=== PATIENT | male | born 1960 | race Caucasian/White ===

== ENCOUNTER 2018-12-28 06:32 | Day surgery (SDC) | payer BC ==
[~2018-12-28 06:32] MED LIST: Lactated Ringers 1,000 ML IV SCH
[2018-12-28] MEDS ORDERED: Lidocaine 4% 5 ML Amp ONE (07:36)
[2018-12-28] MEDS ORDERED: fentaNYL 100 MCG/2 ML SDV ONE (07:43)
[2018-12-28] MEDS ORDERED: Propofol 200 MG/20 ML SDV ONE (07:43)
[2018-12-28] MEDS ORDERED: Midazolam 1 MG/ML 2 ML SDV ONE (07:43)
[2018-12-28 08:50] VITALS: BP 147/95; PULSE 58
--- NOTE | 2018-12-28 09:57 | OR ---
PREOPERATIVE DIAGNOSIS: History of polyps. POSTOPERATIVE DIAGNOSIS: Tiny polyp at 60 cm, removed. PROCEDURE PROPOSED: Total flexible colonoscopy. PROCEDURE DONE: Total flexible colonoscopy with cold biopsy forceps polypectomy x1. INDICATION: This is a 58-year-old gentleman, who comes in for colonic surveillance due to history of polyps. He has had several previous colonoscopies. His examination was about 3 years ago. TECHNIQUE: The patient was brought to the endoscopy suite, placed in the left lateral decubitus position. He was sedated per [employer] with propofol. The flexible video colonoscope was then passed transanally and under visualization advanced to the cecum. Examination revealed normal ascending and transverse colon. In the descending colon, at about 60 cm, there was a tiny polyp removed with 1 bite of the cold biopsy forceps. The remainder of the descending, sigmoid, and rectal colon was unremarkable. No signs of any diverticulosis, colitis, or other abnormalities, and the scope was then withdrawn. The patient tolerated the procedure well. FINAL IMPRESSION: 1. Tiny polyp at 60 cm, removed. 2. History of previous polyps. PLAN: The patient should continue with colonic surveillance every 5 years hereafter due to his history of polyps. SCM: 12/28/2018 08:20:53 MODL: 12/28/2018 08:51:25 /[id number]
--- NOTE | 2018-12-28 09:58 | OR ---
PREOPERATIVE DIAGNOSIS: Mild dyspepsia. POSTOPERATIVE DIAGNOSIS: Essentially normal exam of the esophagus, stomach, and duodenum. PROCEDURE PROPOSED: Upper gastrointestinal panendoscopy with antral biopsies. PROCEDURE DONE: Upper gastrointestinal panendoscopy with antral biopsies. INDICATION: This is a 58-year-old gentleman, who has had some mild dyspepsia symptoms. He has been gastroscoped before, and he was referred for followup exam. TECHNIQUE: The patient was brought to the endoscopy suite, placed in the left lateral decubitus position. He was sedated per [employer] with propofol. A flexible video gastroscope was then passed transorally after inserting the bite block. The scope was advanced well into the 3rd and 4th portions of the duodenum. The duodenum and duodenal bulb were unremarkable. The antrum and body of the stomach looked very normal and healthy without inflammation or ulceration. Couple of antral biopsies were taken to rule out H. pylori, and the patient was found to have a normal GE junction without hiatal hernia or GERD or Schatzki's ring or stenosis, and the remainder of the esophagus was normal as the scope was then withdrawn. He tolerated the procedure well. FINAL IMPRESSION: Essentially normal exam of esophagus, stomach, and duodenum. PLAN: The patient was reassured and I felt nothing further needed to be done regarding his exam. He is also scheduled for a colonoscopy. SCM: 12/28/2018 08:20:53 MODL: 12/28/2018 08:49:17 /[id number]
--- NOTE | 2019-01-11 09:44 | LETTER ---
01/11/2019 Elin Adhikari RE: ELIN ADHIKARI : 1960 Dear Elin: The biopsies taken from your stomach did not reveal any abnormality and you do not have the bacteria in your stomach known as H pylori. The polyp removed from your colon was totally benign and insignificant. However, with your history of polyps, I feel that you should continue with colonoscopies every 5 years hereafter. Respectfully,
== END 2018-12-28 09:00 | disposition home or self-care (01) ==
LOC: VM.SDS 06:32
PROVIDERS: ATTEND Surgery
DX: Z12.11 Encounter for screening for malignant neoplasm of colon (principal); K63.5 Polyp of colon; R10.13 Epigastric pain; I10 Essential (primary) hypertension; E11.9 Type 2 diabetes mellitus without complications; E78.00 Pure hypercholesterolemia, unspecified; D50.9 Iron deficiency anemia, unspecified; E66.9 Obesity, unspecified; Z68.35 Body mass index [BMI] 35.0-35.9, adult; Z88.8 Allergy status to other drugs, medicaments and biological substances; Z85.46 Personal history of malignant neoplasm of prostate; Z86.010 Personal history of colon polyps; Z79.84 Long term (current) use of oral hypoglycemic drugs; Z79.82 Long term (current) use of aspirin; Z79.899 Other long term (current) drug therapy
CPT/HCPCS: 43239; 45380; 82962; J2250; J2704; J3010; J7120

== ENCOUNTER → 2024-05-27 | Day surgery (SDC) | payer MEDICARE, OTHER ==
[~2024-05-27] MED LIST changes: -Lactated Ringers 1,000 ML IV SCH; +Propofol 200 MG/20 ML SDV ONE; +fentaNYL 100 MCG/2 ML SDV ONE
[2024-05-27] MEDS: Lactated Ringers 1,000 ML IV SCH (07:33)
[2024-05-27 09:43] VITALS: BP 109/83; PULSE 69
== END ==
LOC: VM.SDS 07:15
PROVIDERS: ATTEND Family Medicine
DX: Z12.11 Encounter for screening for malignant neoplasm of colon (principal); K62.1 Rectal polyp; K64.9 Unspecified hemorrhoids; I10 Essential (primary) hypertension; E11.9 Type 2 diabetes mellitus without complications; E66.9 Obesity, unspecified; E78.00 Pure hypercholesterolemia, unspecified; C61 Malignant neoplasm of prostate; Z88.8 Allergy status to other drugs, medicaments and biological substances; Z79.82 Long term (current) use of aspirin; Z79.899 Other long term (current) drug therapy; Z79.84 Long term (current) use of oral hypoglycemic drugs; Z86.0101 Personal history of adenomatous and serrated colon polyps
CPT/HCPCS: 00811; 82947; 88305; J2704; J3010; J7120